=== PATIENT | female | born 1975 | race Hispanic/Latino ===

== ENCOUNTER 2019-08-20 13:38 | Inpatient (IN) | payer OTHER, SELFPAY ==
[~2019-08-20] VITALS: Ht 160 cm; Wt 109.1 kg
[2019-08-20] MEDS ORDERED: INSULIN HUMULIN R 100 UNIT/ML 3ML ONE (14:37)
[2019-08-20] MEDS ORDERED: AZITHROMYCIN 250 MG TABLET PO ONE (14:37)
[2019-08-20] MEDS ORDERED: LACTATED RINGERS 1000ML 1,000 ML IV SCH (15:29)
[2019-08-20] MEDS ORDERED: MAG HYDROX/AL HYDROX/SIMETH ES 30 ML SUSP UDCUP PO PRN (15:30)
[2019-08-20] MEDS ORDERED: ONDANSETRON HCL 4 MG/2 ML VIAL IV PRN (15:30)
[2019-08-20] MEDS ORDERED: DiphenhydrAMINE HCL 50 MG/ML VIAL IV PRN (15:30)
[2019-08-20] MEDS ORDERED: NITROGLYCERIN 0.4 MG SL TAB SL PRN (15:30)
[2019-08-20] MEDS ORDERED: GUAIFENESIN-DM 200/20 MG 10 ML PO PRN (15:30)
[2019-08-20] MEDS ORDERED: ACETAMINOPHEN 325 MG TAB PO PRN ×2 (15:30)
[2019-08-20] MEDS ORDERED: INSULIN GLARGINE 100 UNITS/ML 10 ML VIAL SQ SCH (15:30)
[2019-08-20] MEDS ORDERED: LACTULOSE 20 GM/30 ML UDCUP PO PRN (15:30)
[2019-08-20] MEDS ORDERED: DIPHENHYDRAMINE HCL 25 MG CAPSULE PO PRN (15:30)
[2019-08-20] MEDS: CEFTRIAXONE SODIUM 1 GM IV SCH (15:30)
[2019-08-20] MEDS ORDERED: DOXYCYCLINE 100MG+NS 250ML 250 ML IV SCH (15:30)
[2019-08-20] MEDS: METHYLPREDNISOLONE SOD SUCC 125MG/2ML VIAL IV SCH ×2 (15:30→23:30)
[2019-08-20] MEDS ORDERED: GLUCAGON 1MG KIT 1 MG ML IM PRN (15:45)
[2019-08-20] MEDS ORDERED: DEXTROSE 50%-WATER 50 ML DISP.SYRIN IV PRN (15:45)
[2019-08-20] MEDS ORDERED: ALBUTEROL INHALER 90MCG/INH IH ONE (15:50)
[2019-08-20] MEDS: INSULIN HUMULIN R 100 UNIT/ML 3ML SQ SCH ×2 (16:30→21:00)
[2019-08-20] MEDS: INSULIN LISPRO 100 UNIT/ML 3ML SQ SCH (17:00)
[2019-08-20] MEDS ORDERED: METHYLPREDNISOLONE SOD SUCC 40MG/ML 1ML ONE (17:46)
[2019-08-20] MEDS ORDERED: CEFTRIAXONE SODIUM 1 GM ONE (17:46)
[2019-08-20] MEDS ORDERED: LACTATED RINGERS 1000ML 1,000 ML IV ONE (17:46)
[2019-08-20] MEDS ORDERED: DOXYCYCLINE HYCLATE 100 MG TABLET PO ONE (18:10)
[2019-08-20] MEDS: ALBUTEROL INHALER 90MCG/INH IH SCH ×2 (18:45→22:45)
[2019-08-20] MEDS ORDERED: FAMOTIDINE 20MG TAB 20 MG TAB PO SCH (21:00)
[2019-08-20] MEDS: FAMOTIDINE/PF 20 MG/2 ML VIAL IV SCH (21:00)
[2019-08-20] MEDS ORDERED: [UNRECOGNIZED DRUG - OTHER] IV SCH (21:00)
[2019-08-20] MEDS: DOXYCYCLINE HYCLATE 100 MG TABLET PO SCH (21:00)
[2019-08-21 00:15] VITALS: PULSE 89; RESP 18
[2019-08-21] MEDS: ALBUTEROL INHALER 90MCG/INH IH SCH ×5 (02:45→18:45)
[2019-08-21] MEDS: CEFTRIAXONE SODIUM 1 GM IV SCH ×3 (03:30→23:24)
[2019-08-21] MEDS ORDERED: DOXYCYCLINE HYCLATE 100 MG TABLET PO ONE ×2 (06:46→15:53)
[2019-08-21] MEDS ORDERED: METHYLPREDNISOLONE SOD SUCC 40MG/ML 1ML ONE ×2 (06:47→13:34)
[2019-08-21] MEDS ORDERED: CEFTRIAXONE SODIUM 1 GM ONE ×2 (06:47→15:53)
[2019-08-21] MEDS: INSULIN GLARGINE 100 UNITS/ML 10 ML VIAL SQ SCH ×3 (07:00→23:32)
[2019-08-21] MEDS: INSULIN LISPRO 100 UNIT/ML 3ML SQ SCH ×3 (07:30→17:00)
[2019-08-21] MEDS: INSULIN HUMULIN R 100 UNIT/ML 3ML SQ SCH ×4 (07:30→23:27)
[2019-08-21] MEDS: METHYLPREDNISOLONE SOD SUCC 125MG/2ML VIAL IV SCH ×3 (07:30→23:25)
[2019-08-21 07:36] VITALS: PULSE 90; RESP 16
[2019-08-21] MEDS ORDERED: ENOXAPARIN SODIUM 40 MG/0.4 ML SYRINGE SQ SCH ×2 (09:00)
[2019-08-21] MEDS: FAMOTIDINE/PF 20 MG/2 ML VIAL IV SCH ×2 (09:00→23:25)
[2019-08-21] MEDS: DOXYCYCLINE HYCLATE 100 MG TABLET PO SCH ×2 (09:00→23:30)
[2019-08-21] MEDS ORDERED: ENOXAPARIN SODIUM 60 MG/0.6 ML SQ ONE (10:31)
[2019-08-21] MEDS ORDERED: FAMOTIDINE/PF 20 MG/2 ML VIAL IV ONE (10:32)
--- NOTE | 2019-08-21 11:21 | NUR ---
DCP: HOME SW unable to speak to pt who is in ER [facility] unit. Sw spoke to daughter Yesenia [phone]. Pt lives with her son 26 and daughter. 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 Prior to admit pt was independent, no DME or in home care services. Pt has no PCP and take no daily medications at this time. Plan is home with family at fl Addendum: 08/21/19 at 1124 by DEBORA HDEZ SS Amended: Links added.
[2019-08-21] MEDS ORDERED: SODIUM CHLORIDE 0.9% 50 ML IV ONE (15:56)
[2019-08-21 16:13] VITALS: PULSE 82; RESP 30
[2019-08-21 23:15] VITALS: BP 164/89; PULSE 83; RESP 21; TEMP 98.3
[2019-08-22] VITALS (9 sets, daily range): BP systolic 145–157; BP diastolic 68–81; PULSE 69–82; RESP 20–34; TEMP 98.2–99
[2019-08-22] MEDS: ALBUTEROL INHALER 90MCG/INH IH SCH ×7 (00:25→22:45)
[2019-08-22] MEDS: INSULIN HUMULIN R 100 UNIT/ML 3ML SQ SCH ×4 (06:11→21:43)
[2019-08-22] MEDS: INSULIN LISPRO 100 UNIT/ML 3ML SQ SCH ×3 (06:11→16:38)
[2019-08-22] MEDS: METHYLPREDNISOLONE SOD SUCC 125MG/2ML VIAL IV SCH ×3 (06:32→23:30)
[2019-08-22] MEDS ORDERED: ENOXAPARIN SODIUM 1 MG/KG SQ SCH (09:00)
[2019-08-22] MEDS: DOXYCYCLINE HYCLATE 100 MG TABLET PO SCH ×2 (09:01→21:40)
[2019-08-22] MEDS: FAMOTIDINE/PF 20 MG/2 ML VIAL IV SCH ×2 (09:01→21:40)
[2019-08-22] MEDS: ENOXAPARIN SODIUM 120 MG/0.8ML SQ SCH ×2 (09:02→21:48)
[2019-08-22] MEDS: INSULIN GLARGINE 100 UNITS/ML 10 ML VIAL SQ SCH ×2 (09:05→21:45)
[2019-08-22] MEDS: CEFTRIAXONE SODIUM 1 GM IV SCH (16:36)
--- NOTE | 2019-08-22 19:50 | NUR ---
ASSESSMENT PT RESTING QUIETLY IN BED, AAOX4, PLEASANT COOPERATIVE, APPROPRIATE. REPOSITIONS SELF WITHOUT DIFFICULTY. HI FLOW O2 INTACT. , DENIES ANY DIFFICULTY, S.O.B., CHEST PAIN OR DISCOMFORT. VOIDS PER BEDPAN. ASSESSMENT COMPLETED, SEE FLOW SHEET.
[2019-08-23] VITALS (10 sets, daily range): BP systolic 119–178; BP diastolic 56–84; PULSE 68–98; RESP 20–24; TEMP 98.4–99.2
[2019-08-23] MEDS: CEFTRIAXONE SODIUM 1 GM IV SCH ×2 (02:58→14:48)
[2019-08-23] MEDS: ALBUTEROL INHALER 90MCG/INH IH SCH ×6 (03:00→22:51)
[2019-08-23] MEDS: INSULIN LISPRO 100 UNIT/ML 3ML SQ SCH ×3 (06:25→17:28)
[2019-08-23] MEDS: INSULIN HUMULIN R 100 UNIT/ML 3ML SQ SCH ×4 (06:27→21:14)
[2019-08-23] MEDS: METHYLPREDNISOLONE SOD SUCC 125MG/2ML VIAL IV SCH ×2 (06:28→14:48)
[2019-08-23] MEDS ORDERED: SODIUM CHLORIDE 0.9% 250 ML IV ONE (08:02)
[2019-08-23] MEDS: FAMOTIDINE/PF 20 MG/2 ML VIAL IV SCH ×2 (08:42→21:21)
[2019-08-23] MEDS: DOXYCYCLINE HYCLATE 100 MG TABLET PO SCH ×2 (08:42→21:21)
[2019-08-23] MEDS: ENOXAPARIN SODIUM 120 MG/0.8ML SQ SCH ×2 (08:43→21:21)
[2019-08-23] MEDS: INSULIN GLARGINE 100 UNITS/ML 10 ML VIAL SQ SCH ×2 (08:54→21:14)
[2019-08-23] MEDS ORDERED: REMDESIVIR (INVESTIGATIONAL) 200 MG/250 ML NS IV SCH (11:00)
[2019-08-24] VITALS (8 sets, daily range): BP systolic 130–178; BP diastolic 69–98; PULSE 65–78; RESP 18–21; TEMP 97.8–98.6
[2019-08-24] MEDS: METHYLPREDNISOLONE SOD SUCC 125MG/2ML VIAL IV SCH ×4 (02:24→21:36)
[2019-08-24] MEDS: CEFTRIAXONE SODIUM 1 GM IV SCH ×3 (02:24→20:10)
[2019-08-24] MEDS: ALBUTEROL INHALER 90MCG/INH IH SCH ×6 (02:24→22:47)
[2019-08-24] MEDS: INSULIN LISPRO 100 UNIT/ML 3ML SQ SCH ×5 (06:08→20:35)
[2019-08-24] MEDS: INSULIN HUMULIN R 100 UNIT/ML 3ML SQ SCH ×2 (06:08→11:35)
--- NOTE | 2019-08-24 08:30 | NUR ---
AM ASSESSMENT PT LAYING IN BED, RESTING. BEDREST. A/O X 3. SOB ON EXERTION. NO DISTRESS NOTED @ THIS TIME. O2 HIGH FLOW @ 30L. PT STATES GETTING SOB AFTER GETTING UP TO BEDSIDE COMMODE. DENIES CHEST PAIN OR DISCOMFORT. DENIES PALPITATIONS. TELE: SR. DENIES N/A AND/OR DIARRHEA. BEDSIDE COMMODE. INSTRUCTED TO CALL FOR ASSISTANCE. CALL ABENA W/IN REACH.
[2019-08-24] MEDS: DOXYCYCLINE HYCLATE 100 MG TABLET PO SCH ×2 (08:52→20:10)
[2019-08-24] MEDS: ENOXAPARIN SODIUM 120 MG/0.8ML SQ SCH ×2 (08:53→20:11)
[2019-08-24] MEDS: INSULIN GLARGINE 100 UNITS/ML 10 ML VIAL SQ SCH ×2 (08:54→20:36)
[2019-08-24] MEDS: FAMOTIDINE 20MG TAB 20 MG TAB PO SCH ×2 (09:00→20:33)
[2019-08-24] MEDS: REMDESIVIR (INVESTIGATIONAL) 100 MG in SODIUM CHLORIDE 0.9% 250 ML IV SCH ×2 (09:00→20:11)
--- NOTE | 2019-08-24 16:45 | NUR ---
HTN/MD NOTIFICATION DR LEPE NOTIFIED PT'S BP 178/98 & NO HTN PRN MED ORDERED.
[2019-08-24] MEDS ORDERED: LIDOCAINE HCL-MPF 1% 2ML VIAL IV PRN (22:15)
[2019-08-24] MEDS ORDERED: POTASSIUM CHLORIDE 20MEQ/100ML 100 ML IV PRN (22:15)
[2019-08-24] MEDS ORDERED: POTASSIUM CHLORIDE 10% ELIXIR 20 MEQ/15 ML UDCUP PO PRN (22:15)
[2019-08-24] MEDS: POTASSIUM CHLORIDE 20 MEQ ERTAB PO PRN (22:28)
[2019-08-25] VITALS (9 sets, daily range): BP systolic 91–162; BP diastolic 54–79; PULSE 58–81; RESP 18–20; TEMP 97.8–98.5
[2019-08-25] MEDS: POTASSIUM CHLORIDE 20 MEQ ERTAB PO PRN ×2 (01:20→03:30)
[2019-08-25] MEDS: ALBUTEROL INHALER 90MCG/INH IH SCH ×6 (02:45→22:45)
[2019-08-25] MEDS: METHYLPREDNISOLONE SOD SUCC 125MG/2ML VIAL IV SCH (05:23)
[2019-08-25] MEDS: INSULIN LISPRO 100 UNIT/ML 3ML SQ SCH ×7 (06:44→21:04)
[2019-08-25] MEDS: ENOXAPARIN SODIUM 120 MG/0.8ML SQ SCH ×2 (08:49→20:54)
[2019-08-25] MEDS: DOXYCYCLINE HYCLATE 100 MG TABLET PO SCH ×2 (08:49→20:54)
[2019-08-25] MEDS: CEFTRIAXONE SODIUM 1 GM IV SCH ×2 (08:50→20:53)
[2019-08-25] MEDS: FAMOTIDINE 20MG TAB 20 MG TAB PO SCH ×2 (08:51→20:50)
[2019-08-25] MEDS: INSULIN GLARGINE 100 UNITS/ML 10 ML VIAL SQ SCH ×2 (08:51→21:01)
[2019-08-25] MEDS: METHYLPREDNISOLONE SOD SUCC 40MG/ML 1ML IVP SCH ×2 (13:02→20:56)
[2019-08-25] MEDS: REMDESIVIR (INVESTIGATIONAL) 100 MG in SODIUM CHLORIDE 0.9% 250 ML IV SCH (20:53)
[2019-08-26] VITALS (9 sets, daily range): BP systolic 124–138; BP diastolic 54–88; PULSE 70–85; RESP 18–24; TEMP 98–98.7
[2019-08-26] MEDS: ALBUTEROL INHALER 90MCG/INH IH SCH ×6 (02:45→22:45)
[2019-08-26] MEDS: METHYLPREDNISOLONE SOD SUCC 40MG/ML 1ML IVP SCH ×3 (06:27→21:05)
[2019-08-26] MEDS: POTASSIUM CHLORIDE 20 MEQ ERTAB PO PRN (06:51)
[2019-08-26] MEDS: INSULIN LISPRO 100 UNIT/ML 3ML SQ SCH ×7 (06:55→21:10)
[2019-08-26] MEDS: FAMOTIDINE 20MG TAB 20 MG TAB PO SCH ×2 (09:00→21:00)
[2019-08-26] MEDS: DOXYCYCLINE HYCLATE 100 MG TABLET PO SCH ×2 (09:21→21:04)
[2019-08-26] MEDS: CEFTRIAXONE SODIUM 1 GM IV SCH ×2 (09:21→21:04)
[2019-08-26] MEDS: ENOXAPARIN SODIUM 120 MG/0.8ML SQ SCH (09:22)
[2019-08-26] MEDS: INSULIN GLARGINE 100 UNITS/ML 10 ML VIAL SQ SCH ×2 (09:23→21:09)
[2019-08-26] MEDS ORDERED: POTASSIUM CHLORIDE 20 MEQ ERTAB PO SCH (09:30)
[2019-08-26] MEDS ORDERED: ENOXAPARIN SODIUM 120 MG/0.8ML SQ SCH (10:00)
[2019-08-26] MEDS: POTASSIUM CHLORIDE 20 MEQ ERTAB PO SCH (17:43)
[2019-08-26] MEDS ORDERED: FAMOTIDINE/PF 20 MG/2 ML VIAL IV ONE (20:59)
[2019-08-26] MEDS: REMDESIVIR (INVESTIGATIONAL) 100 MG in SODIUM CHLORIDE 0.9% 250 ML IV SCH (21:03)
[2019-08-27] VITALS (9 sets, daily range): BP systolic 118–151; BP diastolic 51–72; PULSE 63–78; RESP 18–20; TEMP 98–98.7
[2019-08-27] MEDS: ALBUTEROL INHALER 90MCG/INH IH SCH ×6 (02:45→21:55)
[2019-08-27] MEDS: METHYLPREDNISOLONE SOD SUCC 40MG/ML 1ML IVP SCH ×3 (06:13→21:52)
[2019-08-27] MEDS: INSULIN LISPRO 100 UNIT/ML 3ML SQ SCH ×7 (06:52→21:54)
--- NOTE | 2019-08-27 08:00 | NUR ---
AM ASSESSMENT PATIENT AWAKE AND ORIENTED, O2 PER HIGH FLOW CANULA AT 30 L 90%, STATES FEELING BETTER AND LESS EPISODES OF SOB.
[2019-08-27] MEDS: CEFTRIAXONE SODIUM 1 GM IV SCH ×2 (08:28→21:52)
[2019-08-27] MEDS: DOXYCYCLINE HYCLATE 100 MG TABLET PO SCH ×2 (08:29→21:52)
[2019-08-27] MEDS: ENOXAPARIN SODIUM 120 MG/0.8ML SQ SCH (08:29)
[2019-08-27] MEDS: INSULIN GLARGINE 100 UNITS/ML 10 ML VIAL SQ SCH ×2 (08:32→21:55)
[2019-08-27] MEDS ORDERED: ENOXAPARIN SODIUM 1 MG/KG SQ SCH (09:00)
[2019-08-27] MEDS: FAMOTIDINE 20MG TAB 20 MG TAB PO SCH ×2 (09:00→21:52)
[2019-08-27] MEDS: POTASSIUM CHLORIDE 20 MEQ ERTAB PO SCH (16:03)
[2019-08-27] MEDS: REMDESIVIR (INVESTIGATIONAL) 100 MG in SODIUM CHLORIDE 0.9% 250 ML IV SCH (21:52)
[2019-08-28] VITALS (11 sets, daily range): BP systolic 122–141; BP diastolic 50–69; PULSE 54–88; RESP 18–20; TEMP 97.3–98.4
[2019-08-28] MEDS: ALBUTEROL INHALER 90MCG/INH IH SCH ×6 (01:42→22:26)
[2019-08-28] MEDS: METHYLPREDNISOLONE SOD SUCC 40MG/ML 1ML IVP SCH ×3 (05:13→22:07)
[2019-08-28] MEDS: INSULIN LISPRO 100 UNIT/ML 3ML SQ SCH ×8 (06:38→21:29)
[2019-08-28] MEDS: POTASSIUM CHLORIDE 20 MEQ ERTAB PO SCH (07:49)
[2019-08-28] MEDS: FAMOTIDINE 20MG TAB 20 MG TAB PO SCH ×2 (09:00→21:28)
[2019-08-28] MEDS: DOXYCYCLINE HYCLATE 100 MG TABLET PO SCH ×2 (10:47→21:28)
[2019-08-28] MEDS: CEFTRIAXONE SODIUM 1 GM IV SCH ×2 (10:47→21:27)
[2019-08-28] MEDS: ENOXAPARIN SODIUM 120 MG/0.8ML SQ SCH (10:49)
[2019-08-28] MEDS: INSULIN GLARGINE 100 UNITS/ML 10 ML VIAL SQ SCH ×2 (12:21→21:31)
[2019-08-29] VITALS (9 sets, daily range): BP systolic 124–151; BP diastolic 57–71; PULSE 60–90; RESP 18–22; TEMP 97.6–98.5
[2019-08-29] MEDS: ALBUTEROL INHALER 90MCG/INH IH SCH ×5 (02:45→23:36)
[2019-08-29] MEDS: METHYLPREDNISOLONE SOD SUCC 40MG/ML 1ML IVP SCH ×3 (05:32→22:46)
[2019-08-29] MEDS: INSULIN LISPRO 100 UNIT/ML 3ML SQ SCH ×7 (06:32→23:00)
[2019-08-29] MEDS: CEFTRIAXONE SODIUM 1 GM IV SCH ×2 (09:13→22:56)
[2019-08-29] MEDS: FAMOTIDINE 20MG TAB 20 MG TAB PO SCH ×2 (09:13→23:00)
[2019-08-29] MEDS: ENOXAPARIN SODIUM 120 MG/0.8ML SQ SCH (09:14)
[2019-08-29] MEDS: INSULIN GLARGINE 100 UNITS/ML 10 ML VIAL SQ SCH ×2 (09:51→22:58)
--- NOTE | 2019-08-29 22:00 | NUR ---
BLOOD GLUCOSE ATTEMPTED TO ADMINISTER SCHEDULED INSULIN NOTED BS 374 FUR BUYER PRECIOUS NOTIFIED, HOWEVER BS OBTAINED AT 2200 RECHECKED AND 228 FUR BUYER PRECIOUS AWARE NO NEW ORDERS. RECEIVED SCHEDULED INSULIN PER ORDER.
[2019-08-30] VITALS (12 sets, daily range): BP systolic 97–139; BP diastolic 50–71; PULSE 53–80; RESP 18–20; TEMP 97.7–98.6
[2019-08-30] MEDS: ALBUTEROL INHALER 90MCG/INH IH SCH ×4 (02:45→20:50)
[2019-08-30] MEDS: METHYLPREDNISOLONE SOD SUCC 40MG/ML 1ML IVP SCH ×3 (06:06→20:42)
--- NOTE | 2019-08-30 06:24 | NUR ---
PM SHIFT NOTE PT A&0X3 O2 PER HIGH FLOW CANNULA 30 L 70%. UP ADLIB TO BSC, NO DIFFICULTY URINATING. DENIES PAIN OR ANY NEEDS NO ACUTE EVENTS. SEE DOCUMENTED ASSESSMENT.
[2019-08-30] MEDS: INSULIN LISPRO 100 UNIT/ML 3ML SQ SCH ×7 (07:12→20:40)
[2019-08-30] MEDS: FAMOTIDINE 20MG TAB 20 MG TAB PO SCH ×2 (09:25→20:42)
[2019-08-30] MEDS: CEFTRIAXONE SODIUM 1 GM IV SCH (09:25)
[2019-08-30] MEDS: ENOXAPARIN SODIUM 120 MG/0.8ML SQ SCH (09:26)
[2019-08-30] MEDS: INSULIN GLARGINE 100 UNITS/ML 10 ML VIAL SQ SCH ×2 (09:27→20:41)
--- NOTE | 2019-08-30 10:53 | NUR ---
RDSCREEN - LOS X 10 Pt positive for COVID-19 PNA. New Onset DM. 75gm CC diet order in place. No report of GI distress. S/p Plasma Tx. Nasal cannula in place. Tolerating prone positioning as per EMR. Pt with Obesity Class III (BMI 44.9). Decreased PO intake. Elevated BG, Ferritin, LDH levels. Recommend 500mg Vitamin C (BID), 220mg ZnSO4 (QD). Recommend 60gm CCD, NCS Recommend Glucerna QD RD to follow up with Diabetes nutrition education. RD to continue to monitor. Please notify as nutrition concerns arise. Thank you.
[2019-08-31] VITALS (9 sets, daily range): BP systolic 102–132; BP diastolic 46–69; PULSE 50–75; RESP 18–20; TEMP 97.4–98.6
[2019-08-31] MEDS: ALBUTEROL INHALER 90MCG/INH IH SCH ×4 (01:49→22:56)
[2019-08-31] MEDS: METHYLPREDNISOLONE SOD SUCC 40MG/ML 1ML IVP SCH ×3 (05:50→20:55)
[2019-08-31] MEDS: INSULIN LISPRO 100 UNIT/ML 3ML SQ SCH ×7 (05:51→20:52)
--- NOTE | 2019-08-31 05:56 | NUR ---
PM SHIFT NOTE PT RECEIVED A & OX3, 02 VIA HIGH FLOW CANNULA 30 L 70%. UP TO BSC PRN. DENIES PAIN OR CONCERNS. NO CHANGES FROM BASELINE SHIFT ASSESSMENT, NO ACUTE EVENTS OVER NIGHT.
[2019-08-31] MEDS ORDERED: ENOXAPARIN SODIUM 0.5 MG/KG EACH SQ SCH (09:00)
[2019-08-31] MEDS ORDERED: ENOXAPARIN SODIUM 60 MG/0.6 ML SQ ONE (09:00)
[2019-08-31] MEDS: FAMOTIDINE 20MG TAB 20 MG TAB PO SCH ×2 (10:17→20:55)
[2019-08-31] MEDS: INSULIN GLARGINE 100 UNITS/ML 10 ML VIAL SQ SCH ×2 (10:33→20:54)
[2019-09-01] VITALS (10 sets, daily range): BP systolic 118–136; BP diastolic 57–70; PULSE 50–84; RESP 14–20; TEMP 97.5–98.1
[2019-09-01] MEDS: ALBUTEROL INHALER 90MCG/INH IH SCH ×4 (03:06→21:10)
[2019-09-01] MEDS: METHYLPREDNISOLONE SOD SUCC 40MG/ML 1ML IVP SCH (06:19)
[2019-09-01] MEDS: INSULIN LISPRO 100 UNIT/ML 3ML SQ SCH ×7 (06:20→21:10)
--- NOTE | 2019-09-01 06:45 | NUR ---
02 O2 SAT 99 % ON NRB, PT CHANGED TO NC @ 4L TOLERATING WELL WITH 02 SAT REMAINING AT 93%.
[2019-09-01] MEDS: FAMOTIDINE 20MG TAB 20 MG TAB PO SCH ×2 (09:38→21:08)
[2019-09-01] MEDS: INSULIN GLARGINE 100 UNITS/ML 10 ML VIAL SQ SCH ×2 (09:54→21:09)
[2019-09-01] MEDS: DEXAMETHASONE 4 MG TAB PO SCH ×3 (10:14→21:08)
[2019-09-02] VITALS (7 sets, daily range): BP systolic 105–128; BP diastolic 52–75; PULSE 55–67; RESP 16–20; TEMP 97.5–98.4
[2019-09-02] MEDS: ALBUTEROL INHALER 90MCG/INH IH SCH ×4 (02:45→22:55)
[2019-09-02] MEDS: DEXAMETHASONE 4 MG TAB PO SCH (06:19)
[2019-09-02] MEDS: INSULIN LISPRO 100 UNIT/ML 3ML SQ SCH ×7 (06:21→20:26)
[2019-09-02] MEDS: FAMOTIDINE 20MG TAB 20 MG TAB PO SCH ×2 (08:24→20:23)
[2019-09-02] MEDS: INSULIN GLARGINE 100 UNITS/ML 10 ML VIAL SQ SCH ×3 (08:27→20:18)
--- NOTE | 2019-09-02 16:47 | NUR ---
TAPER DOWN THE OXYGEN FROM 4 LITERS TO 3 THE PATIENT IS TOLERATING IT AND OXYGEN SATURATION HAS MAINTAINED IN 96%. WILL CONTINUE TO MONITOR
[2019-09-03] VITALS (9 sets, daily range): BP systolic 100–127; BP diastolic 50–70; PULSE 56–78; RESP 18–20; TEMP 97.4–98.1
[2019-09-03] MEDS: ALBUTEROL INHALER 90MCG/INH IH SCH ×6 (03:18→21:52)
[2019-09-03] MEDS: POTASSIUM CHLORIDE 20 MEQ ERTAB PO PRN ×2 (06:34→08:40)
[2019-09-03] MEDS: INSULIN LISPRO 100 UNIT/ML 3ML SQ SCH ×8 (07:30→20:27)
[2019-09-03] MEDS: FAMOTIDINE 20MG TAB 20 MG TAB PO SCH ×2 (08:41→21:15)
[2019-09-03] MEDS: DEXAMETHASONE 4 MG TAB PO SCH (08:41)
[2019-09-03] MEDS ORDERED: METFORMIN HCL 500 MG TABLET PO SCH ×2 (14:30→17:00)
[2019-09-03] MEDS: METFORMIN HCL 500 MG TABLET PO SCH (18:30)
[2019-09-03] MEDS: INSULIN GLARGINE 100 UNITS/ML 10 ML VIAL SQ SCH (20:27)
[2019-09-03] MEDS ORDERED: GLIPIZIDE XL 2.5MG TAB PO SCH (21:00)
[2019-09-03] MEDS: APIXABAN 2.5 MG TABLET PO SCH (21:15)
[2019-09-03] MEDS: GLIPIZIDE XL 2.5MG TAB PO SCH (21:15)
[2019-09-04] VITALS (8 sets, daily range): BP systolic 104–120; BP diastolic 52–71; PULSE 51–76; RESP 18–19; TEMP 97.7–98.2
[2019-09-04] MEDS: ALBUTEROL INHALER 90MCG/INH IH SCH ×6 (02:45→22:51)
[2019-09-04] MEDS: INSULIN LISPRO 100 UNIT/ML 3ML SQ SCH ×4 (06:22→20:15)
--- NOTE | 2019-09-04 06:29 | NUR ---
02 PT ON RA FOR MAJORITY OF SHIFT 02 SAT 90-92% ON RA.
[2019-09-04] MEDS: METFORMIN HCL 500 MG TABLET PO SCH ×2 (06:58→16:19)
--- NOTE | 2019-09-04 08:00 | NUR ---
ASSESSMENT PT IS AAOX3 DENIES CP DENIES SOB WHILE AT REST, CURRENTLY IN PRONE POSITION. O2 SAT ON ROOM AIR WHILE PRONE AND AT REST IS 91-92% NO VISIBLE SIGNS OF DISTRESS NOTED, CALL LIGHT WITHIN REACH.
[2019-09-04] MEDS: GLIPIZIDE XL 2.5MG TAB PO SCH ×2 (08:08→20:14)
[2019-09-04] MEDS: DEXAMETHASONE 4 MG TAB PO SCH (08:09)
[2019-09-04] MEDS: APIXABAN 2.5 MG TABLET PO SCH ×2 (08:09→22:51)
[2019-09-04] MEDS: FAMOTIDINE 20MG TAB 20 MG TAB PO SCH ×2 (08:09→20:14)
--- NOTE | 2019-09-04 10:30 | NUR ---
UP TO COMMODE ON ROOM AIR, O2 SAT LOW TO MID 80S DURING THIS TIME. DENIES SOB AT THIS TIME. BACK TO BED, PLACED BACK ON O2, O2 SAT LOW 90S.
--- NOTE | 2019-09-04 13:00 | NUR ---
DR LU TELE MED DONE VIA TABLET
--- NOTE | 2019-09-04 15:03 | NUR ---
RD FOLLOW UP Attempt to call Pt - No Answer. Pt tolerating 60gm CCD, Glucerna QD. New Onset Diabetes. May require RN-assisted nutrition education. NUTRITION HANDOUT CAN BE FOUND ON [address] -> NUTRITION CARE MANUAL -> DIABETES -> TYPE [address] to follow up.
[2019-09-04] MEDS: INSULIN GLARGINE 100 UNITS/ML 10 ML VIAL SQ SCH (20:16)
[2019-09-05] MEDS: ALBUTEROL INHALER 90MCG/INH IH SCH ×6 (02:45→22:45)
[2019-09-05 03:14] VITALS: BP 114/70; PULSE 61; RESP 18; TEMP 97.7
[2019-09-05] MEDS: INSULIN LISPRO 100 UNIT/ML 3ML SQ SCH ×4 (06:23→21:12)
[2019-09-05 07:52] VITALS: PULSE 60; RESP 18
[2019-09-05 08:00] VITALS: BP 130/67; PULSE 70; RESP 19; TEMP 97.8
--- NOTE | 2019-09-05 08:00 | NUR ---
ASSESSMENT PT IS AAOX3 DENIES CP DENIES SOB AT THIS TIME. REMAINS ON O2 VIA NC AT 2LPM O2 SAT 90-92% WHILE AT REST. AM MEDS GIVEN. CALL LIGHT WITHIN REACH.
[2019-09-05] MEDS: DEXAMETHASONE 4 MG TAB PO SCH (08:07)
[2019-09-05] MEDS: FAMOTIDINE 20MG TAB 20 MG TAB PO SCH ×2 (08:08→21:09)
[2019-09-05] MEDS: METFORMIN HCL 500 MG TABLET PO SCH ×2 (08:08→16:41)
[2019-09-05] MEDS: APIXABAN 2.5 MG TABLET PO SCH ×2 (08:08→21:09)
[2019-09-05] MEDS: GLIPIZIDE XL 2.5MG TAB PO SCH ×2 (08:08→21:10)
--- NOTE | 2019-09-05 10:30 | NUR ---
DR DUGAN ROUNDED STATES HE WILL SIGN OFF
[2019-09-05 11:47] VITALS: BP 111/61; PULSE 76; RESP 19; TEMP 98
--- NOTE | 2019-09-05 14:00 | NUR ---
RT MADE AWARE OF PENDING O2 EVAL WHILE PT IS UP IN CHAIR
[2019-09-05 16:00] VITALS: BP 127/67; PULSE 72; RESP 19; TEMP 98.1
[2019-09-05 20:00] VITALS: BP 124/71; PULSE 56; RESP 20; TEMP 97.8
--- NOTE | 2019-09-05 22:37 | NUR ---
02 RA PT SAT UP IN CHAIR ON SIDE OF BED FOR APPROX 1 HOUR 02 SAT LOWEST 89% ON RA.
[2019-09-06] VITALS (9 sets, daily range): BP systolic 109–143; BP diastolic 51–75; PULSE 56–78; RESP 15–18; TEMP 97.7–98.3
[2019-09-06] MEDS: ALBUTEROL INHALER 90MCG/INH IH SCH ×6 (03:41→22:47)
[2019-09-06] MEDS: INSULIN LISPRO 100 UNIT/ML 3ML SQ SCH ×4 (05:50→20:57)
--- NOTE | 2019-09-06 08:00 | NUR ---
ENCOUNTERED PATIENT SITTING ON THE CHAIR WITH O2 AT 1L PER N/C. SHE DENIES SOB. O2 SAT: 95% HOWEVER DROPS TO 80'S ONCE PATIENT TALKED AND TOOK MEDS. SHE SAID THAT SHE FEELS FINE. FULL ASSESSMENT DONE. ENHANCED PRECAUTIONS MAINTAINED FOR POSITIVE COVID-19. ENCOURAGED PRONING AND SHE SAID THAT SHE SLEPT ON PRONE POSITION AND IS ABLE TO TOLERATE THIS DURING DAY TIME FOR ABOUT 5 HOURS. CALL LIGHT WITHIN REACH. INSTRUCTED TO CALL FOR ASSISTANCE.
[2019-09-06] MEDS: FAMOTIDINE 20MG TAB 20 MG TAB PO SCH ×2 (08:12→21:00)
[2019-09-06] MEDS: DEXAMETHASONE 4 MG TAB PO SCH (08:12)
[2019-09-06] MEDS: APIXABAN 2.5 MG TABLET PO SCH ×2 (08:13→20:58)
[2019-09-06] MEDS: GLIPIZIDE XL 2.5MG TAB PO SCH ×2 (08:14→20:58)
[2019-09-06] MEDS: METFORMIN HCL 500 MG TABLET PO SCH ×2 (08:14→16:30)
--- NOTE | 2019-09-06 10:55 | NUR ---
TELE MED DONE BY DR. LU.
--- NOTE | 2019-09-06 11:11 | NUR ---
PATIENT IS PRONING AT THIS TIME. O2 SAT: 96% ON 1L PER N/C.
[2019-09-07] VITALS (9 sets, daily range): BP systolic 116–143; BP diastolic 61–72; PULSE 53–74; RESP 15–20; TEMP 97.7–98.4
[2019-09-07] MEDS: ALBUTEROL INHALER 90MCG/INH IH SCH ×6 (03:58→21:52)
[2019-09-07] MEDS: INSULIN LISPRO 100 UNIT/ML 3ML SQ SCH ×4 (05:45→20:38)
--- NOTE | 2019-09-07 06:10 | NUR ---
PM SHIFT NOTE PT A & OX3 DENIES ANY CONCERNS OR COMPLAINTS. 02 SAT REMAINS 92-96% ON 1 L NC. NO CHANGES FROM BASELINE SHIFT ASSESSMENT/ACUTE EVENTS.
[2019-09-07] MEDS: METFORMIN HCL 500 MG TABLET PO SCH ×2 (06:44→16:50)
[2019-09-07] MEDS: GLIPIZIDE XL 2.5MG TAB PO SCH ×2 (08:20→20:38)
[2019-09-07] MEDS: DEXAMETHASONE 4 MG TAB PO SCH (08:21)
[2019-09-07] MEDS: FAMOTIDINE 20MG TAB 20 MG TAB PO SCH ×2 (08:21→20:39)
[2019-09-07] MEDS: APIXABAN 2.5 MG TABLET PO SCH ×2 (08:21→20:37)
[2019-09-08] VITALS (8 sets, daily range): BP systolic 107–128; BP diastolic 61–79; PULSE 60–75; RESP 16–24; TEMP 97.7–98.3
[2019-09-08] MEDS: ALBUTEROL INHALER 90MCG/INH IH SCH ×6 (03:30→21:48)
[2019-09-08] MEDS: INSULIN LISPRO 100 UNIT/ML 3ML SQ SCH ×4 (07:30→21:00)
[2019-09-08] MEDS: METFORMIN HCL 500 MG TABLET PO SCH ×2 (07:51→17:06)
[2019-09-08] MEDS: FAMOTIDINE 20MG TAB 20 MG TAB PO SCH ×2 (09:00→21:00)
[2019-09-08] MEDS: APIXABAN 2.5 MG TABLET PO SCH ×2 (09:17→21:48)
[2019-09-08] MEDS: GLIPIZIDE XL 2.5MG TAB PO SCH ×2 (09:17→21:48)
[2019-09-08] MEDS: DEXAMETHASONE 4 MG TAB PO SCH (09:17)
[2019-09-09 00:10] VITALS: BP 125/69; PULSE 58; RESP 18; TEMP 97.7
[2019-09-09] MEDS: ALBUTEROL INHALER 90MCG/INH IH SCH ×4 (02:06→14:05)
[2019-09-09 03:53] VITALS: BP 122/65; PULSE 60; RESP 18; TEMP 97.8
[2019-09-09] MEDS: INSULIN LISPRO 100 UNIT/ML 3ML SQ SCH ×3 (06:13→17:17)
--- NOTE | 2019-09-09 06:14 | NUR ---
PM SHIFT NOTE PT A & 0X3 02 SAT ON 0.5 L O2 VIA NC 95-96%, TAKEN OFF 02 THROUGH THE NIGHT ABLE TO MAINTAIN 02 SAT AT 93% THROUGHOUT THE NIGHT BUT NOTED 02 SAT DID DROP WHEN PT AMBULATED TO BATHROOM TO 85 ABLE TO RECOVER BACK TO 93% WITH REST. NO ACUTE EVENTS OVER NIGHT.
[2019-09-09 07:16] VITALS: PULSE 58; RESP 16
[2019-09-09] MEDS: DEXAMETHASONE 4 MG TAB PO SCH (08:31)
[2019-09-09] MEDS: GLIPIZIDE XL 2.5MG TAB PO SCH (08:31)
[2019-09-09] MEDS: APIXABAN 2.5 MG TABLET PO SCH (08:32)
[2019-09-09] MEDS: FAMOTIDINE 20MG TAB 20 MG TAB PO SCH (08:32)
[2019-09-09] MEDS: METFORMIN HCL 500 MG TABLET PO SCH ×2 (08:32→17:16)
[2019-09-09 08:44] VITALS: BP 143/74; PULSE 56; RESP 18; TEMP 98.4
[2019-09-09 11:54] VITALS: BP 128/66; PULSE 70; RESP 20; TEMP 98.4
--- NOTE | 2019-09-09 14:32 | NUR ---
PHONE CALL Family updated.
[2019-09-09 16:11] VITALS: BP 121/71; PULSE 70; RESP 18; TEMP 98.4
--- NOTE | 2019-09-09 17:35 | NUR ---
DC Plan Patient discharging home. Patient loaned O2 Concentrator for home use. Instructed patient on use: plug in, turn on, and set to O2@2 LPM. Instructed on how to attach O2 tubing to concentrator. Patient verbalized understanding on use of machine. Informed patient to return to security at [facility] after use. Patient verbalized understanding. Eliquis coupon given to primary nurse to give to patient with script upon discharge. No further dc needs verbalized by nurse or patient. CD
--- NOTE | 2019-09-09 17:45 | NUR ---
HL REMOVED, CATHETER INTACT. DISCHARGE INSTRUCTIONS GIVEN, VERBALIZED UNDERSTANDING. O2 CONCENTRATOR ARRANGED BY CASE MANAGEMENT AT BEDSIDE AND INSTRUCTED ON USE BY SAME. Addendum: 09/09/19 at 1817 by AVI ALMONTE RN RN JL DUMAS PROVIDED.
--- NOTE | 2019-09-09 18:30 | NUR ---
DISCHARGED HOME VIA W/C WITH BELONGINGS, ACCOMPANIED BY Mi HOLDER, LAB SUPPORT SERVICE TECH. O2 CONCENTRATOR WITH PT.
== END 2019-09-09 18:20 | disposition home or self-care (01) | DRG 177 ==
LOC: EDH 13:38 → EDHIP 13:39 → UNDOADMIN 15:29 → EDHIP 15:29 → 2BH 08-21 21:43 → 2AH 08-23 19:20
PROVIDERS: ADMIT Family Medicine; ATTEND Family Medicine
PROC: 30233K1 Transfusion of Nonautologous Frozen Plasma into Peripheral Vein, Percutaneous Approach (ICD-10-PCS; principal; 2019-09-07)
DX: U07.1 COVID-19 (principal); J96.01 Acute respiratory failure with hypoxia; J12.89 Other viral pneumonia; Z68.41 Body mass index [BMI] 40.0-44.9, adult; E11.9 Type 2 diabetes mellitus without complications; E66.01 Morbid (severe) obesity due to excess calories